=== PATIENT | male | born 1950 | race Caucasian/White ===

== ENCOUNTER 2016-05-14 10:42 | Outpatient (CLI) | payer MEDICARE | END 2016-05-14 10:43 | disposition home or self-care (01) | DX: M19.012 Primary osteoarthritis, left shoulder (principal); R22.2 Localized swelling, mass and lump, trunk ==

== ENCOUNTER 2016-08-01 08:20 | Outpatient (CLI) | payer MEDICARE | END 2016-08-01 08:21 | disposition home or self-care (01) | DX: E78.5 Hyperlipidemia, unspecified (principal) ==

== ENCOUNTER 2016-08-07 11:25 | Outpatient (CLI) | payer OTHER | END 2016-08-07 11:26 | disposition home or self-care (01) | DX: M19.112 Post-traumatic osteoarthritis, left shoulder (principal) ==

== ENCOUNTER 2016-08-11 19:59 | Emergency (ER) | payer OTHER ==
[2016-08-11] MEDS ORDERED: HYDROcod/ACETAM 5/325 MG TABLET PO STA (22:37)
[2016-08-11] MEDS ORDERED: HYDROcod/ACETAM 5/325 MG TABLET ONE (22:50)
== END 2016-08-11 23:16 | disposition home or self-care (01) ==
DX: R07.89 Other chest pain (principal); I25.10 Atherosclerotic heart disease of native coronary artery without angina pectoris; Z95.1 Presence of aortocoronary bypass graft; R01.1 Cardiac murmur, unspecified; I10 Essential (primary) hypertension; E78.00 Pure hypercholesterolemia, unspecified; Z79.82 Long term (current) use of aspirin; F17.200 Nicotine dependence, unspecified, uncomplicated
CPT/HCPCS: 80053; 83690; 84484; 85025; 93005; 93010; 99283; 99284; A9270

== ENCOUNTER 2016-12-31 08:08 | Outpatient (CLI) | payer OTHER ==
[2016-12-31 15:25] LABS: ALBUMIN/GLOBULIN RATIO 1.6 (1.0-2.2); BILIRUBIN,TOTAL 0.8 mg/dL (0.2-1.0); BUN - BLOOD UREA NITROGEN 12 mg/dL (6-20); CALCIUM 9.2 mg/dL (8.5-10.3); CARBON DIOXIDE - CO2 30 mmol/L (21-32); CHLORIDE 106 mmol/L (101-111); CHOL/HDL RATIO 2.8 (<5.0); CHOLESTEROL 98 mg/dL; CREATININE 0.7 mg/dL (0.6-1.2); GFR - MDRD 112 (>89); GLUCOSE 104 mg/dL (70-100); HDL CHOLESTEROL 35 mg/dL; LDL/HDL RATIO 1.3 (<3.6); POTASSIUM 4.1 mmol/L (3.5-5.0); SODIUM 142 mmol/L (135-145); TOTAL PROTEIN 7.2 g/dL (6.7-8.2); TRIGLYCERIDES 80 mg/dL; VLDL CHOLESTEROL 16 mg/dL
== END 2016-12-31 08:09 | disposition home or self-care (01) ==
LOC: LAB.WCP 08:08
PROVIDERS: ATTEND Family Medicine
DX: I25.10 Atherosclerotic heart disease of native coronary artery without angina pectoris (principal); E78.5 Hyperlipidemia, unspecified; Z12.5 Encounter for screening for malignant neoplasm of prostate
CPT/HCPCS: 36415; 80053; 80061; 84153

== ENCOUNTER 2017-07-26 08:00 | Outpatient (CLI) | payer OTHER ==
[2017-07-26 13:21] LABS: ALBUMIN 4.1 g/dL (3.2-5.5); ALBUMIN/GLOBULIN RATIO 1.5 (1.0-2.2); ALKALINE PHOSPHATASE 87 IU/L (42-121); ALT ALANINE AMINOTRANSFERASE 20 IU/L (10-60); AST ASPARTATE AMINOTRANSFERASE 16 IU/L (10-42); BILIRUBIN,TOTAL 0.3 mg/dL (0.2-1.0); BUN - BLOOD UREA NITROGEN 12 mg/dL (6-20); CALCIUM 8.9 mg/dL (8.5-10.3); CARBON DIOXIDE - CO2 29 mmol/L (21-32); CHLORIDE 105 mmol/L (101-111); CHOL/HDL RATIO 2.6 (<5.0); CHOLESTEROL 111 mg/dL; CREATININE 0.7 mg/dL (0.6-1.2); GFR - MDRD 112 (>89); GLUCOSE 97 mg/dL (70-100); HDL CHOLESTEROL 42 mg/dL; LDL CHOLESTEROL,CALCULATED 55 mg/dL; LDL/HDL RATIO 1.3 (<3.6); SODIUM 140 mmol/L (135-145); TOTAL PROTEIN 6.8 g/dL (6.7-8.2); VLDL CHOLESTEROL 14 mg/dL
== END 2017-07-26 08:01 | disposition home or self-care (01) ==
LOC: LAB.WCP 08:00
PROVIDERS: ATTEND Family Medicine
DX: I25.10 Atherosclerotic heart disease of native coronary artery without angina pectoris (principal); E78.5 Hyperlipidemia, unspecified
CPT/HCPCS: 36415; 80053; 80061; 83721

== ENCOUNTER 2017-10-25 09:46 | Outpatient (CLI) | payer OTHER ==
[2017-10-25 12:44] LABS: BASOPHILS % (AUTO) 0.4 %; EOSINOPHILS # (AUTO) 0.1 10^3/uL (0.0-0.7); EOSINOPHILS % (AUTO) 1.5 %; LYMPHOCYTES # (AUTO) 2.9 10^3/uL (1.5-3.5); LYMPHOCYTES % (AUTO) 31.8 %; MEAN CORPUSCULAR HEMOGLOBIN 33.4 pg (27.0-31.0); MEAN CORPUSCULAR HGB CONC 33.6 g/dL (32.0-36.0); MEAN CORPUSCULAR VOLUME 99.4 fL (80.0-94.0); MEAN PLATELET VOLUME 10.3 fL (7.4-11.4); MONOCYTES # (AUTO) 0.9 10^3/uL (0.0-1.0); MONOCYTES % (AUTO) 10.1 %; NEUTROPHILS # (AUTO) 5.1 10^3/uL (1.5-6.6); NEUTROPHILS % (AUTO) 56.2 %; PLT - PLATELET COUNT 150 10^3/uL (130-450); RED BLOOD COUNT 4.79 10^6/uL (4.70-6.10); RED CELL DISTRIBUTION WIDTH 13.5 % (12.0-15.0)
[2017-10-25 12:59] LABS: ALBUMIN 4.1 g/dL (3.2-5.5); ALBUMIN/GLOBULIN RATIO 1.3 (1.0-2.2); CALCIUM 8.9 mg/dL (8.5-10.3); CREATININE 0.7 mg/dL (0.6-1.2); TOTAL PROTEIN 7.2 g/dL (6.7-8.2)
== END 2017-10-25 09:47 | disposition home or self-care (01) ==
LOC: LAB.WCP 09:46
PROVIDERS: ATTEND Family Medicine
DX: K57.92 Diverticulitis of intestine, part unspecified, without perforation or abscess without bleeding (principal)
CPT/HCPCS: 36415; 80053; 85025

== ENCOUNTER 2018-01-22 08:40 | Outpatient (CLI) | payer OTHER ==
[2018-01-22 13:11] LABS: BASOPHILS % (AUTO) 0.5 %; EOSINOPHILS # (AUTO) 0.2 10^3/uL (0.0-0.7); EOSINOPHILS % (AUTO) 2.2 %; HGB - HEMOGLOBIN 16.7 g/dL (14.0-18.0); LYMPHOCYTES # (AUTO) 2.4 10^3/uL (1.5-3.5); LYMPHOCYTES % (AUTO) 34.7 %; MEAN CORPUSCULAR HEMOGLOBIN 33.8 pg (27.0-31.0); MEAN CORPUSCULAR HGB CONC 33.7 g/dL (32.0-36.0); MEAN CORPUSCULAR VOLUME 100.1 fL (80.0-94.0); MEAN PLATELET VOLUME 10.3 fL (7.4-11.4); MONOCYTES # (AUTO) 0.7 10^3/uL (0.0-1.0); MONOCYTES % (AUTO) 9.6 %; NEUTROPHILS # (AUTO) 3.7 10^3/uL (1.5-6.6); PLT - PLATELET COUNT 157 10^3/uL (130-450); RED BLOOD COUNT 4.93 10^6/uL (4.70-6.10); RED CELL DISTRIBUTION WIDTH 13.6 % (12.0-15.0)
[2018-01-22 13:20] LABS: ALBUMIN/GLOBULIN RATIO 1.6 (1.0-2.2); ALKALINE PHOSPHATASE 98 IU/L (42-121); ALT ALANINE AMINOTRANSFERASE 20 IU/L (10-60); AST ASPARTATE AMINOTRANSFERASE 16 IU/L (10-42); BUN - BLOOD UREA NITROGEN 12 mg/dL (6-20); CALCIUM 9.1 mg/dL (8.5-10.3); CARBON DIOXIDE - CO2 31 mmol/L (21-32); CHLORIDE 104 mmol/L (101-111); CHOL/HDL RATIO 2.2 (<5.0); CHOLESTEROL 99 mg/dL; CREATININE 0.7 mg/dL (0.6-1.2); GFR - MDRD 112 (>89); GLUCOSE 100 mg/dL (70-100); HDL CHOLESTEROL 46 mg/dL; LDL CHOLESTEROL,CALCULATED 40 mg/dL; LDL/HDL RATIO 0.9 (<3.6); SODIUM 140 mmol/L (135-145); TOTAL PROTEIN 6.5 g/dL (6.7-8.2); VLDL CHOLESTEROL 13 mg/dL
[2018-01-22 13:56] LABS: PLATELET MORPHOLOGY RARE GIANT PLATELETS (NORMAL)
== END 2018-01-22 08:41 ==
LOC: LAB.WCP 08:40
PROVIDERS: ATTEND Family Medicine
DX: E78.5 Hyperlipidemia, unspecified (principal); Z12.5 Encounter for screening for malignant neoplasm of prostate; F32.9 Major depressive disorder, single episode, unspecified; I25.10 Atherosclerotic heart disease of native coronary artery without angina pectoris
CPT/HCPCS: 36415; 80053; 80061; 83721; 84153; 84443; 85025

== ENCOUNTER 2018-03-25 08:38 | Outpatient (CLI) | payer MEDICARE, OTHER ==
[2018-03-25 14:57] LABS: ALBUMIN/GLOBULIN RATIO 1.2 (1.0-2.2); ALKALINE PHOSPHATASE 103 IU/L (42-121); ALT ALANINE AMINOTRANSFERASE 18 IU/L (10-60); AST ASPARTATE AMINOTRANSFERASE 19 IU/L (10-42); BILIRUBIN,TOTAL 0.9 mg/dL (0.2-1.0); BUN - BLOOD UREA NITROGEN 13 mg/dL (6-20); CALCIUM 9.2 mg/dL (8.5-10.3); CARBON DIOXIDE - CO2 33 mmol/L (21-32); CHLORIDE 103 mmol/L (101-111); CHOL/HDL RATIO 4.4 (<5.0); CHOLESTEROL 212 mg/dL; CREATININE 0.9 mg/dL (0.6-1.2); GFR - MDRD 84 (>89); GLUCOSE 101 mg/dL (70-100); HDL CHOLESTEROL 48 mg/dL; LDL CHOLESTEROL,CALCULATED 147 mg/dL; LDL/HDL RATIO 3.1 (<3.6); SODIUM 143 mmol/L (135-145); TOTAL PROTEIN 7.3 g/dL (6.7-8.2); VLDL CHOLESTEROL 17 mg/dL
[2018-03-25 14:58] LABS: PSA FREE 0.36 ng/mL (0.16-2.81)
[2018-03-25 14:59] LABS: PSA TOTAL 2.95 ng/mL (0.000-2.000)
[2018-03-25 19:51] LABS: BILIRUBIN,URINE NEGATIVE (NEGATIVE); GLUCOSE, URINE (UA) NEGATIVE (NEGATIVE); KETONES,URINE (UA) NEGATIVE (NEGATIVE); LEUKOCYTE ESTERASE, URINE NEGATIVE (NEGATIVE); NITRITE,URINE NEGATIVE (NEGATIVE); OCCULT BLOOD,URINE NEGATIVE (NEGATIVE); PROTEIN,URINE NEGATIVE (NEGATIVE); UROBILINOGEN,URINE 0.2 (NORMAL) E.U./dL (NORMAL)
[2018-03-25 20:20] LABS: AMORPHOUS SEDIMENT,UR Few /LPF; BACTERIA,URINE None Seen /HPF (None Seen); CLARITY,URINE CLEAR (CLEAR); RBC,URINE 0-5 /HPF (0-5); SQUAMOUS EPITHELIAL CELL,UR NONE SEEN (<= Few)
== END 2018-03-25 23:59 | disposition home or self-care (01) ==
LOC: LAB.WCP 08:38
PROVIDERS: ATTEND Family Medicine
DX: E78.5 Hyperlipidemia, unspecified (principal); R97.20 Elevated prostate specific antigen [PSA]; F32.9 Major depressive disorder, single episode, unspecified; R31.9 Hematuria, unspecified; R10.2 Pelvic and perineal pain
CPT/HCPCS: 36415; 80053; 80061; 81001; 83721; 84153; 84154; 84443; 87086

== ENCOUNTER 2018-04-06 08:13 | Outpatient (CLI) | payer MEDICARE ==
[~2018-04-06 08:13] MED LIST: IOVERSOL 320 100 ML VIAL IVP ONE
[2018-04-06] MEDS ORDERED: IOVERSOL 320 50 ML VIAL ONE ×2 (08:27→08:29)
[2018-04-06] MEDS ORDERED: IOVERSOL 320 100 ML VIAL IVP ONE (08:56)
--- NOTE | 2018-04-07 02:01 | CT Report ---
Reason: GROSS HEMATURIA Procedure Date: 04/06/2018 Accession Number: [id number] / [id number] Procedure: CT - IVP CPT Code: FULL RESULT: EXAM: CT ABDOMEN AND PELVIS WITHOUT AND WITH CONTRAST (CT IVP) EXAM DATE: 04/06/2018 09:02 AM. CLINICAL HISTORY: Gross hematuria. COMPARISONS: ABDOMEN/PELVIS W/ 09/27/2014 3:16 PM. TECHNIQUE: Routine helical imaging was performed through the kidneys, ureters and bladder in the precontrast, postcontrast and delayed phase. IV Contrast: 100 mL Optiray 320. Reconstructions: Coronal and sagittal. In accordance with CT protocol optimization, one or more of the following dose reduction techniques were utilized for this exam: automated exposure control, adjustment of mA and/or KV based on patient size, or use of iterative reconstructive technique. FINDINGS: Lung Bases: Unremarkable. Right Kidney/Ureter: No stones, hydronephrosis, or solid-appearing masses. Chronic benign, more than 5 cm, cyst exophytic posteriorly. Left Kidney/Ureter: No stones, hydronephrosis, or solid-appearing masses. Other Abdominal Organs: The liver, spleen, pancreas, gallbladder, and adrenal glands are unremarkable with the exception of small hepatic cysts. Peritoneal Cavity/Bowel: No free fluid, free air or adenopathy. No masses. Bowel loops appear unremarkable with exception of colonic diverticulosis. Pelvic Organs: Mildly enlarged prostate. The bladder appears within normal limits with the exception of a small urachal remnant. Vasculature: Normal. Bones: No significant abnormality with note of prior median sternotomy. Other: None. IMPRESSION: 1. No urinary tract solid masses, stones, or obstruction. Approximately 5 cm incidental right renal cyst. 2. Enlarged prostate. 3. Colonic diverticulosis. RADIA
== END 2018-04-06 08:14 | disposition home or self-care (01) ==
LOC: DI 08:13
PROVIDERS: ATTEND Urology
DX: N28.1 Cyst of kidney, acquired (principal); N40.0 Benign prostatic hyperplasia without lower urinary tract symptoms; K57.30 Diverticulosis of large intestine without perforation or abscess without bleeding
CPT/HCPCS: 74178; Q9967

== ENCOUNTER 2018-07-02 08:00 | Outpatient (CLI) | payer MEDICARE ==
[2018-07-02 13:36] LABS: ALBUMIN 4.3 g/dL (3.2-5.5); ALBUMIN/GLOBULIN RATIO 1.5 (1.0-2.2); ALKALINE PHOSPHATASE 86 IU/L (42-121); ALT ALANINE AMINOTRANSFERASE 26 IU/L (10-60); AST ASPARTATE AMINOTRANSFERASE 25 IU/L (10-42); BILIRUBIN,TOTAL 1.3 mg/dL (0.2-1.0); BUN - BLOOD UREA NITROGEN 14 mg/dL (6-20); CARBON DIOXIDE - CO2 30 mmol/L (21-32); CHLORIDE 102 mmol/L (101-111); CHOL/HDL RATIO 2.9 (<5.0); CHOLESTEROL 129 mg/dL; CREATININE 0.7 mg/dL (0.6-1.2); GFR - MDRD 112 (>89); GLUCOSE 92 mg/dL (70-100); HDL CHOLESTEROL 44 mg/dL; LDL CHOLESTEROL,CALCULATED 73 mg/dL; LDL/HDL RATIO 1.7 (<3.6); SODIUM 141 mmol/L (135-145); TOTAL PROTEIN 7.1 g/dL (6.7-8.2); VLDL CHOLESTEROL 12 mg/dL
== END 2018-07-02 23:59 | disposition home or self-care (01) ==
LOC: LAB.WCP 08:00
PROVIDERS: ATTEND Family Medicine
DX: E78.5 Hyperlipidemia, unspecified (principal)
CPT/HCPCS: 36415; 80053; 80061; 83721

== ENCOUNTER 2018-08-12 13:21 | Emergency (ER) | payer MEDICARE ==
--- NOTE | 2018-08-12 13:29 | ED Physician Documentation ---
PD HPI CHEST PAIN - Stated complaint Stated Complaint: CHEST PAIN - History obtained from History obtained from: Patient - History of Present Illness Timing - onset: How many days ago (6) Timing - onset during: Exertion (He says he did 2 hours or weed whacking 6 days ago. He did not have any unusual chest pain or dyspnea at that time. He states the next morning he woke up feeling sore in the chest wall. It hurt more with palpation and with shoulder and arm use. He had been using some Aleve twice daily and using some ice to the area periodically as well. He saw her chiropractor yesterday without any improvement. He went to the clinic today but because of the prior history of some heart problems with CABG in 2014, the providers there referred him to the ER for further evaluation.) Timing - duration: Days (5) Timing - details: Gradual onset, Still present, Waxing and waning Quality: Aching, Dull, Pain Location: Substernal, Left chest Radiation: Left upper extremity Improved by: Rest Worsened by: Inspiration, Movement, Palpation Associated symptoms: No: Shortness of air, Nausea, Feeling faint / dizzy, Palpitations, Cough Similar symptoms before: Has not had sx before (He states this does not feel like his angina pain that he had before his bypass) Review of Systems Constitutional: denies: Fever, Chills, Myalgias Nose: denies: Rhinorrhea / runny nose, Congestion Throat: denies: Sore throat Cardiac: reports: Chest pain / pressure. denies: Palpitations, Pedal edema, Calf pain Respiratory: denies: Cough GI: denies: Abdominal Pain, Nausea, Vomiting, Diarrhea Skin: denies: Rash, Lesions Neurologic: denies: Generalized weakness, Near syncope PD PAST MEDICAL HISTORY - Past Medical History Cardiovascular: Hypertension, High cholesterol, Coronary artery disease, Other Respiratory: Pneumonia Endocrine/Autoimmune: None GI: None : Benign prostate hypertrophy Psych: None Musculoskeletal: Osteoarthritis, Chronic back pain - Past Surgical History Past Surgical History: Yes General: Hiatal hernia repair Ortho: Rotator cuff repair, Spine surgery, Other Cardiovascular: CABG - Present Medications Home Medications: Ambulatory Orders Medication Instructions Recorded Confirmed Aspirin 81 mg PO 03/22/16 Atorvastatin Calcium 40 mg PO 03/22/16 Oxycodone HCl/Acetaminophen 1 each PO 03/22/16 [Oxycodone-Acetaminophen 5-325] Sertraline HCl 25 mg PO 03/22/16 Tamsulosin HCl [Flomax] 0.4 mg PO 03/22/16 Nitroglycerin [Nitrostat] 0.4 mg SL Q5MIN PRN #20 tablet 08/11/16 Dexamethasone [Decadron] 4 mg PO DAILY #5 tablet 08/12/18 Finasteride [Proscar] 5 mg PO 08/12/18 08/12/18 Hydrocodone/Acetaminophen [Craig 1 each PO Q6H PRN #25 tablet 08/12/18 5-325 Tablet] - Allergies Allergies/Adverse Reactions: Allergies Allergy/AdvReac Type Severity Reaction Status Date / Time codeine Allergy Unknown Verified 03/22/16 13:56 tramadol AdvReac Hallucinati Verified 08/12/18 13:30 ons - Social History Does the pt smoke?: Yes Smoking Status: Current every day smoker Does the pt drink ETOH?: No Does the pt have substance abuse?: No - Immunizations Immunizations are current?: Yes - POLST Patient has POLST: Yes PD ED PE NORMAL - Vitals Vital signs reviewed: Yes - General General: Alert and oriented X 3, No acute distress, Well developed/nourished - HEENT HEENT: Pharynx benign - Neck Neck: Supple, no meningeal sign, No adenopathy - Cardiac Cardiac: RRR, No murmur, Other (prior sternotomy scar noted without redness. ) - Respiratory Respiratory: Clear bilaterally, Other (There is focal chest wall tenderness in the left sternal border cartilage reproducing his pain. There is no rash nor sores. There is no redness.) - Abdomen Abdomen: Soft, Non tender - Back Back: No CVA TTP - Derm Derm: Normal color, Warm and dry, No rash - Extremities Extremities: No deformity, No tenderness to palpate, Normal ROM s pain, No edema, No calf tenderness / cord - Neuro Neuro: Alert and oriented X 3, No motor deficit, Normal speech Results - Vitals Vitals: Vital Signs - 24 hr 08/12/18 08/12/18 08/12/18 13:27 14:55 15:08 Temperature 35.5 C L Heart Rate 62 61 61 Respiratory 20 18 16 Rate Blood Pressure 154/79 H 131/68 H 139/67 H O2 Saturation 96 97 96 Oxygen O2 Source Room air - EKG (time done) arrival Rhythm: NSR [place]: Normal Intervals: Normal MI QRS: Normal Ischemia: Normal ST segments, T wave inversion (V1 and V2, different than ECG in 2017. No ST elevations nor depressions. ). No: ST elevation c/w ischemia, Q waves - Labs Labs: Laboratory Tests 08/12/18 08/12/18 08/12/18 13:41 13:41 13:41 WBC 7.9 RBC 4.85 Hgb 16.1 Hct 47.4 MCV 97.7 H MCH 33.3 H MCHC 34.0 RDW 12.7 Plt Count 166 MPV 9.5 Neut # (Auto) 4.9 Lymph # (Auto) 2.3 Wilkin # (Auto) 0.5 Eos # (Auto) 0.1 Baso # (Auto) 0.1 Absolute Nucleated RBC 0.01 Nucleated RBC % 0.1 Sodium 140 Potassium 4.3 Chloride 101 Carbon Dioxide 29 Anion Gap 10.0 BUN 15 Creatinine 0.9 Estimated GFR (MDRD) 83 L Glucose 131 H Calcium 9.2 Total Bilirubin 0.7 AST 22 ALT 22 Alkaline Phosphatase 81 Troponin I < 0.04 B-Natriuretic Peptide Total Protein 6.9 Albumin 3.9 Globulin 3.0 Albumin/Globulin Ratio 1.3 Lipase 35 08/12/18 13:41 WBC RBC Hgb Hct MCV MCH MCHC RDW Plt Count MPV Neut # (Auto) Lymph # (Auto) Wilkin # (Auto) Eos # (Auto) Baso # (Auto) Absolute Nucleated RBC Nucleated RBC % Sodium Potassium Chloride Carbon Dioxide Anion Gap BUN Creatinine Estimated GFR (MDRD) Glucose Calcium Total Bilirubin AST ALT Alkaline Phosphatase Troponin I B-Natriuretic Peptide 19 Total Protein Albumin Globulin Albumin/Globulin Ratio Lipase - Rads (name of study) chest xray Radiology: Prelim report reviewed (no acute process), See rad report PD MEDICAL DECISION MAKING - ED course Complexity details: reviewed results, re-evaluated patient, considered differential, d/w patient Departure - Departure Disposition: 01 Home, Self Care Clinical Impression: Acute costochondritis Muscle strain of chest wall Qualifiers: Encounter type: initial encounter Qualified Code(s): S29.011A - Strain of muscle and tendon of front wall of thorax, initial encounter Condition: Stable Record reviewed to determine appropriate education?: Yes Instructions: ED Chest Pain Costochondritis Follow-Up: Renae Fields MD [Primary Care Provider] - Prescriptions: Dexamethasone [Decadron] 4 mg PO DAILY #5 tablet Hydrocodone/Acetaminophen [Craig 5-325 Tablet] 1 each PO Q6H PRN #25 tablet PRN Reason: Pain Comments: Continue your Aleve at home but increase the dose to 2 to 3 tablets twice daily with food. Add Decadron also an anti-inflammatory daily for 5 days. To that ad d Tylenol or hydrocodone as needed for pain. Continue with physical treatment such as chiropractic ice and heat. Recheck if not improving over the next several days to a week. Your blood test and x-ray are good here without any signs of heart or lung cause for the pains. It seems to be a strain of the muscles and cartilage on the chest wall. Discharge Date/Time: 08/12/18 15:18
[2018-08-12] MEDS ORDERED: KETOROLAC 15 MG/ML VIAL IVP STA (13:57)
[2018-08-12] MEDS ORDERED: MORPHINE 10 MG/ML VIAL IVP STA (13:57)
[2018-08-12 14:08] LABS: BASOPHILS # (AUTO) 0.1 10^3/uL (0.0-0.1); BASOPHILS % (AUTO) 0.9 %; EOSINOPHILS # (AUTO) 0.1 10^3/uL (0.0-0.7); EOSINOPHILS % (AUTO) 1.2 %; HGB - HEMOGLOBIN 16.1 g/dL (14.0-18.0); LYMPHOCYTES # (AUTO) 2.3 10^3/uL (1.5-3.5); LYMPHOCYTES % (AUTO) 29.1 %; MEAN CORPUSCULAR HEMOGLOBIN 33.3 pg (27.0-31.0); MEAN CORPUSCULAR VOLUME 97.7 fL (80.0-94.0); MEAN PLATELET VOLUME 9.5 fL (7.4-11.4); MONOCYTES # (AUTO) 0.5 10^3/uL (0.0-1.0); MONOCYTES % (AUTO) 6.3 %; NEUTROPHILS # (AUTO) 4.9 10^3/uL (1.5-6.6); NEUTROPHILS % (AUTO) 62.5 %; PLT - PLATELET COUNT 166 10^3/uL (130-450); RED BLOOD COUNT 4.85 10^6/uL (4.70-6.10); RED CELL DISTRIBUTION WIDTH 12.7 % (12.0-15.0); WHITE BLOOD COUNT 7.9 x10^3/uL (4.8-10.8)
[2018-08-12 14:15] LABS: ALBUMIN 3.9 g/dL (3.2-5.5); ALBUMIN/GLOBULIN RATIO 1.3 (1.0-2.2); BILIRUBIN,TOTAL 0.7 mg/dL (0.2-1.0); CALCIUM 9.2 mg/dL (8.5-10.3); CREATININE 0.9 mg/dL (0.6-1.2); TOTAL PROTEIN 6.9 g/dL (6.7-8.2)
--- NOTE | 2018-08-12 14:54 | XRAY Report ---
Reason: chest pain Procedure Date: 08/12/2018 Accession Number: [id number] / [id number] Procedure: XR - Chest 1 View X-Ray CPT Code: 18092 FULL RESULT: EXAM: CHEST RADIOGRAPHY EXAM DATE: 08/12/2018 02:24 PM. CLINICAL HISTORY: Chest pain. COMPARISON: CHEST 2 VIEW PA/LAT 06/02/2015 10:51 AM. TECHNIQUE: 1 view. FINDINGS: Lungs/Pleura: No focal opacities evident. No pleural effusion. No pneumothorax. Mediastinum: Patient has undergone median sternotomy. Heart size is within normal limits. There is fracture of the superior most sternotomy wire. Other: None. IMPRESSION: No acute intrathoracic plain film abnormality. RADIA
[2018-08-12 15:08] VITALS: BP 139/67
== END 2018-08-12 15:18 | disposition home or self-care (01) ==
LOC: ED 13:21
DX: S29.011A Strain of muscle and tendon of front wall of thorax, initial encounter (principal); S21.109A Unspecified open wound of unspecified front wall of thorax without penetration into thoracic cavity, initial encounter; X58.XXXA Exposure to other specified factors, initial encounter; Y93.H2 Activity, gardening and landscaping; Y92.009 Unspecified place in unspecified non-institutional (private) residence as the place of occurrence of the external cause; I10 Essential (primary) hypertension; I25.810 Atherosclerosis of coronary artery bypass graft(s) without angina pectoris; F17.200 Nicotine dependence, unspecified, uncomplicated
CPT/HCPCS: 36415; 71045; 80053; 83690; 83880; 84484; 85025; 93005; 96374; 99284

== ENCOUNTER 2019-02-14 12:00 | Outpatient (CLI) | payer MEDICARE ==
--- NOTE | 2019-02-16 00:31 | XRAY Report ---
Reason: Acute on chronic bilateral hip pain Procedure Date: 02/14/2019 Accession Number: [id number] / [id number] Procedure: XR - Hips 2V BILAT CPT Code: Final Report FULL RESULT: EXAM: BILATERAL HIP RADIOGRAPHY EXAM DATE: 02/14/2019 12:00 PM CLINICAL HISTORY: Acute on chronic bilateral hip pain. COMPARISON: None. TECHNIQUE: 2 views each. FINDINGS: Bones: Normal. No fractures or bone lesion. Right Hip: Normal. No dislocation. The hip joint space is preserved. Left Hip: Normal. No dislocation. The hip joint space is preserved. Soft Tissues: Unremarkable. IMPRESSION: Normal bilateral hip radiography. RADIA
== END 2019-02-14 23:59 | disposition home or self-care (01) ==
LOC: DI 12:00
PROVIDERS: ATTEND Family Medicine
DX: M25.551 Pain in right hip (principal); M25.552 Pain in left hip
CPT/HCPCS: 73521

== ENCOUNTER 2019-04-26 09:09 | Outpatient (CLI) | payer MEDICARE ==
[~2019-04-26 09:09] MED LIST changes: +ALBUTEROL NEB 2.5 MG/3 ML INH SCH; -IOVERSOL 320 100 ML VIAL IVP ONE
== END 2019-04-26 09:10 | disposition home or self-care (01) ==
LOC: RT 09:09
PROVIDERS: ATTEND Family Medicine
DX: R06.02 Shortness of breath (principal)
CPT/HCPCS: 94010

== ENCOUNTER 2020-07-08 08:45 | Outpatient (CLI) | payer MEDICARE ==
--- NOTE | 2020-07-08 09:59 | CT Report ---
PROCEDURE: Low Dose Lung Cancer Screen INDICATIONS: HX OF SMOKING TECHNIQUE: Noncontrast low-dose 5 mm thick sections acquired from the pulmonary apices to the posterior costophr enic angles. 7 mm thick coronal and sagittal MIP reformats were then acquired. For radiation dose r eduction, the following was used: automated exposure control, adjustment of mA and/or kV according t o patient size. COMPARISON: None. FINDINGS: Image quality: Excellent. Lungs and pleura: There is no suspicious noncalcified pulmonary nodule or mass. No acute airspace op acity otherwise. Pleural spaces are clear. Mediastinum: Heart size is normal. No pericardial effusion. No mediastinal adenopathy by size crit eria. Thoracic aorta and central pulmonary arteries are normal in size. Esophagus is normal in [place]. No hiatal hernia. Bones and chest wall: Median sternotomy changes. No suspicious bony lesions. No vertebral body compr ession fractures. No axillary or supraclavicular adenopathy by size criteria. Abdomen: Visualized upper abdomen solid organs and bowel loops appear normal in the absence of contr ast. IMPRESSION: No suspicious pulmonary nodule or mass. Lung RADS category 1. Recommendation: Annual low-dose CT of the chest for lung cancer screening. Reviewed by: Will Farrell MD on 07/08/2020 9:57 AM PDT Approved by: Will Farrell MD on 07/08/2020 9:57 AM PDT Station ID: [id number]
== END 2020-07-08 08:46 | disposition home or self-care (01) ==
LOC: DI 08:45
PROVIDERS: ATTEND Family Medicine
DX: Z12.2 Encounter for screening for malignant neoplasm of respiratory organs (principal); Z87.891 Personal history of nicotine dependence

== ENCOUNTER 2021-03-28 08:20 | Outpatient (CLI) | payer MEDICARE ==
[2021-03-28 12:13] LABS: BILIRUBIN,URINE NEGATIVE (NEGATIVE); GLUCOSE, URINE (UA) NEGATIVE (NEGATIVE); KETONES,URINE (UA) NEGATIVE (NEGATIVE); LEUKOCYTE ESTERASE, URINE NEGATIVE (NEGATIVE); NITRITE,URINE NEGATIVE (NEGATIVE); OCCULT BLOOD,URINE NEGATIVE (NEGATIVE); PROTEIN,URINE NEGATIVE (NEGATIVE); UROBILINOGEN,URINE 0.2 (NORMAL) E.U./dL (NORMAL)
[2021-03-28 12:14] LABS: BASOPHILS # (AUTO) 0.1 10^3/uL (0.0-0.1); BASOPHILS % (AUTO) 0.9 %; EOSINOPHILS # (AUTO) 0.1 10^3/uL (0.0-0.7); EOSINOPHILS % (AUTO) 2.5 %; HCT - HEMATOCRIT 47.6 % (42.0-52.0); HGB - HEMOGLOBIN 15.9 g/dL (14.0-18.0); LYMPHOCYTES # (AUTO) 2.6 10^3/uL (1.5-3.5); LYMPHOCYTES % (AUTO) 46.7 %; MEAN CORPUSCULAR HGB CONC 33.4 g/dL (32.0-36.0); MEAN CORPUSCULAR VOLUME 98.8 fL (80.0-94.0); MEAN PLATELET VOLUME 11.4 fL (7.4-11.4); MONOCYTES # (AUTO) 0.5 10^3/uL (0.0-1.0); MONOCYTES % (AUTO) 9.3 %; NEUTROPHILS # (AUTO) 2.2 10^3/uL (1.5-6.6); NEUTROPHILS % (AUTO) 40.2 %; PLT - PLATELET COUNT 169 10^3/uL (130-450); RED BLOOD COUNT 4.82 10^6/uL (4.70-6.10); RED CELL DISTRIBUTION WIDTH 12.2 % (12.0-15.0); WHITE BLOOD COUNT 5.5 x10^3/uL (4.8-10.8)
[2021-03-28 12:16] LABS: ALBUMIN 4.1 g/dL (3.2-5.5); ALBUMIN/GLOBULIN RATIO 1.2 (1.0-2.2); ALKALINE PHOSPHATASE 82 IU/L (42-121); ALT ALANINE AMINOTRANSFERASE 41 IU/L (10-60); AST ASPARTATE AMINOTRANSFERASE 32 IU/L (10-42); BILIRUBIN,TOTAL 0.7 mg/dL (0.2-1.0); BUN - BLOOD UREA NITROGEN 11 mg/dL (6-20); CALCIUM 9.4 mg/dL (8.5-10.3); CARBON DIOXIDE - CO2 30 mmol/L (21-32); CHLORIDE 104 mmol/L (101-111); CHOL/HDL RATIO 2.8 (<5.0); CHOLESTEROL 141 mg/dL; CREATININE 0.9 mg/dL (0.6-1.2); GFR - MDRD 83 (>89); GLUCOSE 93 mg/dL (70-100); HDL CHOLESTEROL 51 mg/dL; LDL CHOLESTEROL,CALCULATED 55 mg/dL; LDL/HDL RATIO 1.1 (<3.6); POTASSIUM 4.1 mmol/L (3.5-5.0); SODIUM 143 mmol/L (135-145); TOTAL PROTEIN 7.4 g/dL (6.7-8.2); TRIGLYCERIDES 175 mg/dL; VLDL CHOLESTEROL 35 mg/dL
[2021-03-28 12:27] LABS: ESTIMATED AVERAGE GLUCOSE 117 mg/dL (70-100); HEMOGLOBIN A1c% 5.7 % (4.27-6.07)
[2021-03-28 13:21] LABS: CLARITY,URINE CLEAR (CLEAR); RBC,URINE None Seen /HPF (0-5); WBC,URINE 0-3 /HPF (0-3)
[2021-03-28 13:22] LABS: BACTERIA,URINE None Seen /HPF (None Seen); SQUAMOUS EPITHELIAL CELL,UR NONE SEEN (<= Few)
== END 2021-03-28 23:59 | disposition home or self-care (01) ==
LOC: LAB.WCP 08:20
PROVIDERS: ATTEND Nurse Practitioner
DX: I25.10 Atherosclerotic heart disease of native coronary artery without angina pectoris (principal); E78.5 Hyperlipidemia, unspecified; E66.9 Obesity, unspecified; N40.0 Benign prostatic hyperplasia without lower urinary tract symptoms
CPT/HCPCS: 36415; 80053; 80061; 81001; 83036; 83721; 84153; 85025; 87086

== ENCOUNTER 2021-04-19 12:30 | Outpatient (CLI) | payer MEDICARE ==
[2021-04-19 18:24] LABS: ALBUMIN 4.5 g/dL (3.2-5.5); BILIRUBIN,DIRECT 0.1 mg/dL (0.1-0.5); TOTAL PROTEIN 7.5 g/dL (6.7-8.2)
== END 2021-04-19 23:59 | disposition home or self-care (01) ==
LOC: LAB.WCP 12:30
PROVIDERS: ATTEND Physician Assistant
DX: L30.0 Nummular dermatitis (principal); B35.1 Tinea unguium; B35.2 Tinea manuum
CPT/HCPCS: 36415; 80076

== ENCOUNTER 2021-04-25 08:00 | Outpatient (CLI) | payer MEDICARE ==
[2021-04-25 18:43] LABS: HCT - HEMATOCRIT 49.1 % (42.0-52.0); HGB - HEMOGLOBIN 16.3 g/dL (14.0-18.0); MEAN CORPUSCULAR HEMOGLOBIN 32.9 pg (27.0-31.0); MEAN CORPUSCULAR HGB CONC 33.2 g/dL (32.0-36.0); MEAN CORPUSCULAR VOLUME 99.2 fL (80.0-94.0); MEAN PLATELET VOLUME 12.1 fL (7.4-11.4); RED BLOOD COUNT 4.95 10^6/uL (4.70-6.10); RED CELL DISTRIBUTION WIDTH 12.3 % (12.0-15.0); WHITE BLOOD COUNT 6.9 x10^3/uL (4.8-10.8)
[2021-04-25 18:47] LABS: URIC ACID 6.8 mg/dL (2.6-7.2)
[2021-04-25 18:53] LABS: CRP - C-REACTIVE PROTEIN < 1.0 mg/dL (0-1.0)
[2021-04-25 20:21] LABS: RHEUMATOID FACTOR NEGATIVE (Negative)
[2021-04-27 10:46] LABS: DNA (DS) ANTIBODY 14 IU/mL
[2021-04-27 16:51] LABS: CYCLIC CITRULL PEPTIDE CCP IGG <16 UNITS
[2021-04-28 22:12] LABS: ANA SCREEN NEGATIVE (NEGATIVE)
== END 2021-04-25 23:59 ==
LOC: LAB.WCP 08:00
PROVIDERS: ATTEND Nurse Practitioner
DX: M19.90 Unspecified osteoarthritis, unspecified site (principal)
CPT/HCPCS: 36415; 84550; 85027; 85651; 86038; 86140; 86200; 86225; 86430

== ENCOUNTER 2021-05-30 12:09 | Outpatient (CLI) | payer MEDICARE ==
[2021-05-30 12:35] LABS: BASOPHILS % (AUTO) 0.5 %; EOSINOPHILS # (AUTO) 0.1 10^3/uL (0.0-0.7); EOSINOPHILS % (AUTO) 1.5 %; HCT - HEMATOCRIT 47.5 % (42.0-52.0); HGB - HEMOGLOBIN 16.1 g/dL (14.0-18.0); LYMPHOCYTES # (AUTO) 2.2 10^3/uL (1.5-3.5); LYMPHOCYTES % (AUTO) 34.2 %; MEAN CORPUSCULAR HEMOGLOBIN 33.4 pg (27.0-31.0); MEAN CORPUSCULAR HGB CONC 33.9 g/dL (32.0-36.0); MEAN CORPUSCULAR VOLUME 98.5 fL (80.0-94.0); MEAN PLATELET VOLUME 10.9 fL (7.4-11.4); MONOCYTES # (AUTO) 0.7 10^3/uL (0.0-1.0); MONOCYTES % (AUTO) 10.1 %; NEUTROPHILS # (AUTO) 3.5 10^3/uL (1.5-6.6); NEUTROPHILS % (AUTO) 53.4 %; PLT - PLATELET COUNT 157 10^3/uL (130-450); RED BLOOD COUNT 4.82 10^6/uL (4.70-6.10); RED CELL DISTRIBUTION WIDTH 12.8 % (12.0-15.0); WHITE BLOOD COUNT 6.6 x10^3/uL (4.8-10.8)
[2021-05-30 12:44] LABS: ALBUMIN 3.9 g/dL (3.2-5.5); ALBUMIN/GLOBULIN RATIO 1.2 (1.0-2.2); BILIRUBIN,TOTAL 0.9 mg/dL (0.2-1.0); CALCIUM 9.2 mg/dL (8.5-10.3); CREATININE 0.9 mg/dL (0.6-1.2); POTASSIUM 4.1 mmol/L (3.5-5.0); TOTAL PROTEIN 7.1 g/dL (6.7-8.2)
== END 2021-05-30 12:10 | disposition home or self-care (01) ==
LOC: LAB 12:09
PROVIDERS: ATTEND Physician Assistant
DX: L29.8 Other pruritus (principal); B35.1 Tinea unguium
CPT/HCPCS: 36415; 80053; 85025

== ENCOUNTER 2021-08-23 10:45 | Outpatient (CLI) | payer MEDICARE ==
[2021-08-23 11:13] LABS: ALBUMIN 4.4 g/dL (3.2-5.5); BILIRUBIN,DIRECT 0.1 mg/dL (0.1-0.5); BILIRUBIN,TOTAL 0.8 mg/dL (0.2-1.0); TOTAL PROTEIN 7.2 g/dL (6.7-8.2)
== END 2021-08-23 10:46 | disposition home or self-care (01) ==
LOC: LAB 10:45
PROVIDERS: ATTEND Physician Assistant
DX: B35.2 Tinea manuum (principal); L30.8 Other specified dermatitis; B35.1 Tinea unguium
CPT/HCPCS: 36415; 80076

== ENCOUNTER 2021-09-05 11:46 | Outpatient (CLI) | payer MEDICARE ==
--- NOTE | 2021-09-05 14:05 | XRAY Report ---
PROCEDURE: Hand 3 View LT INDICATIONS: L HAND PX TECHNIQUE: 3 views of the hand(s) acquired. COMPARISON: None FINDINGS: Bones: Remote resection of the trapezium. Postsurgical change. No fractures or dislocations. No susp icious bony lesions. Soft tissues: No suspicious soft tissue calcifications. IMPRESSION: Remote resection of the trapezium. No evidence of acute bony abnormality of the left hand. Reviewed by: Zain Mckeon MD on 09/05/2021 2:04 PM PDT Approved by: Zain Mckeon MD on 09/05/2021 2:04 PM PDT Station ID: [id number]
== END 2021-09-05 11:47 | disposition home or self-care (01) ==
LOC: DI.N 11:46
PROVIDERS: ATTEND Nurse Practitioner Family
DX: S60.222A Contusion of left hand, initial encounter (principal)

== ENCOUNTER 2021-12-15 08:00 | Outpatient (CLI) | payer MEDICARE ==
[2021-12-15 14:37] LABS: BASOPHILS # (AUTO) 0.1 10^3/uL (0.0-0.1); BASOPHILS % (AUTO) 0.7 %; EOSINOPHILS # (AUTO) 0.1 10^3/uL (0.0-0.7); EOSINOPHILS % (AUTO) 1.1 %; HCT - HEMATOCRIT 46.4 % (42.0-52.0); HGB - HEMOGLOBIN 15.9 g/dL (14.0-18.0); LYMPHOCYTES # (AUTO) 2.6 10^3/uL (1.5-3.5); MEAN CORPUSCULAR HEMOGLOBIN 32.9 pg (27.0-31.0); MEAN CORPUSCULAR HGB CONC 34.3 g/dL (32.0-36.0); MEAN CORPUSCULAR VOLUME 96.1 fL (80.0-94.0); MEAN PLATELET VOLUME 11.1 fL (7.4-11.4); MONOCYTES # (AUTO) 0.6 10^3/uL (0.0-1.0); MONOCYTES % (AUTO) 7.7 %; NEUTROPHILS % (AUTO) 55.2 %; PLT - PLATELET COUNT 161 10^3/uL (130-450); RED BLOOD COUNT 4.83 10^6/uL (4.70-6.10); RED CELL DISTRIBUTION WIDTH 12.5 % (12.0-15.0); WHITE BLOOD COUNT 7.3 x10^3/uL (4.8-10.8)
[2021-12-15 14:57] LABS: ALBUMIN 4.3 g/dL (3.2-5.5); ALBUMIN/GLOBULIN RATIO 1.5 (1.0-2.2); BILIRUBIN,TOTAL 1.1 mg/dL (0.2-1.0); CALCIUM 9.4 mg/dL (8.5-10.3); POTASSIUM 3.9 mmol/L (3.5-5.0); TOTAL PROTEIN 7.2 g/dL (6.7-8.2)
[2021-12-15 15:57] LABS: BILIRUBIN,URINE NEGATIVE (NEGATIVE); GLUCOSE, URINE (UA) NEGATIVE (NEGATIVE); KETONES,URINE (UA) NEGATIVE (NEGATIVE); LEUKOCYTE ESTERASE, URINE NEGATIVE (NEGATIVE); NITRITE,URINE NEGATIVE (NEGATIVE); OCCULT BLOOD,URINE NEGATIVE (NEGATIVE); PH,URINE 6.5 PH (5.0-7.5); PROTEIN,URINE NEGATIVE (NEGATIVE); UROBILINOGEN,URINE 0.2 (NORMAL) E.U./dL (NORMAL)
[2021-12-15 16:04] LABS: CLARITY,URINE CLEAR (CLEAR)
[2021-12-15 16:11] LABS: BACTERIA,URINE None Seen /HPF (None Seen); RBC,URINE 0-5 /HPF (0-5); SQUAMOUS EPITHELIAL CELL,UR NONE SEEN (<= Few); WBC,URINE 0-3 /HPF (0-3)
[2021-12-16 04:09] LABS: COMPLEMENT C3 135 mg/dL (82-167); COMPLEMENT C4 31 mg/dL (12-38)
[2021-12-19 00:06] LABS: CARDIOLIPIN IGG <9 GPL U/mL (0-14); CARDIOLIPIN IGM 45 MPL U/mL (0-12)
== END 2021-12-15 23:59 | disposition home or self-care (01) ==
LOC: LAB 08:00
PROVIDERS: ATTEND Internal Medicine Rheumatology
DX: M25.50 Pain in unspecified joint (principal); R76.8 Other specified abnormal immunological findings in serum
CPT/HCPCS: 36415; 80053; 81001; 85025; 85598; 85613; 85651; 85732; 86147; 86160; 86225

== ENCOUNTER 2022-03-09 12:00 | Outpatient (CLI) | payer MEDICARE ==
--- NOTE | 2022-03-09 14:03 | XRAY Report ---
PROCEDURE: Lumbar Spine 2 View INDICATIONS: BACK PAIN, LUMBAR TECHNIQUE: 2 views of the lumbar spine were acquired. COMPARISON: None. FINDINGS: Bones: 5 [id number] vertebrae are present. There is normal bony alignment. No vertebral body compression fractures. No suspicious bony lesions. Multilevel degenerative disc space loss. Promine nt multilevel lower lumbar facet arthropathy. Suspect canal stenosis. Soft tissues: Overlying bowel gas pattern is normal. No suspicious soft tissue calcifications. IMPRESSION: Degenerative change. Suspect canal stenosis. No acute compression fractures. Comment: Lumbar spine MRI may be helpful. Reviewed by: Zain Mckeon MD on 03/09/2022 2:02 PM PST Approved by: Zain Mckeon MD on 03/09/2022 2:02 PM PST Station ID: [id number]
== END 2022-03-09 12:01 | disposition home or self-care (01) ==
LOC: DI 12:00
PROVIDERS: ATTEND Family Medicine
DX: M47.816 Spondylosis without myelopathy or radiculopathy, lumbar region (principal)

== ENCOUNTER 2022-06-20 08:36 | Outpatient (CLI) | payer MEDICARE ==
[2022-06-20 08:51] LABS: BASOPHILS # (AUTO) 0.1 10^3/uL (0.0-0.1); BASOPHILS % (AUTO) 0.9 %; EOSINOPHILS # (AUTO) 0.1 10^3/uL (0.0-0.7); EOSINOPHILS % (AUTO) 1.6 %; HGB - HEMOGLOBIN 15.7 g/dL (14.0-18.0); LYMPHOCYTES # (AUTO) 2.8 10^3/uL (1.5-3.5); LYMPHOCYTES % (AUTO) 39.7 %; MEAN CORPUSCULAR HEMOGLOBIN 32.4 pg (27.0-31.0); MEAN CORPUSCULAR HGB CONC 33.4 g/dL (32.0-36.0); MEAN CORPUSCULAR VOLUME 96.9 fL (80.0-94.0); MEAN PLATELET VOLUME 11.1 fL (7.4-11.4); MONOCYTES # (AUTO) 0.6 10^3/uL (0.0-1.0); MONOCYTES % (AUTO) 8.5 %; NEUTROPHILS # (AUTO) 3.4 10^3/uL (1.5-6.6); PLT - PLATELET COUNT 150 10^3/uL (130-450); RED BLOOD COUNT 4.85 10^6/uL (4.70-6.10); RED CELL DISTRIBUTION WIDTH 12.4 % (12.0-15.0)
[2022-06-20 09:20] LABS: ALBUMIN 4.3 g/dL (3.2-5.5); ALBUMIN/GLOBULIN RATIO 1.3 (1.0-2.2); ALKALINE PHOSPHATASE 71 IU/L (42-121); ALT ALANINE AMINOTRANSFERASE 25 IU/L (10-60); AST ASPARTATE AMINOTRANSFERASE 20 IU/L (10-42); BILIRUBIN,TOTAL 0.7 mg/dL (0.2-1.0); BUN - BLOOD UREA NITROGEN 18 mg/dL (6-20); CALCIUM 9.5 mg/dL (8.5-10.3); CARBON DIOXIDE - CO2 30 mmol/L (21-32); CHLORIDE 106 mmol/L (101-111); CHOL/HDL RATIO 2.8 (<5.0); CHOLESTEROL 110 mg/dL; CREATININE 0.8 mg/dL (0.6-1.2); GFR - MDRD 95 (>89); GLUCOSE 116 mg/dL (70-100); HDL CHOLESTEROL 39 mg/dL; LDL CHOLESTEROL,CALCULATED 57 mg/dL; LDL/HDL RATIO 1.5 (<3.6); POTASSIUM 4.5 mmol/L (3.5-5.0); SODIUM 144 mmol/L (135-145); TOTAL PROTEIN 7.5 g/dL (6.7-8.2); TRIGLYCERIDES 70 mg/dL; VLDL CHOLESTEROL 14 mg/dL
[2022-06-20 11:13] LABS: ESTIMATED AVERAGE GLUCOSE 117 mg/dL (70-100); HEMOGLOBIN A1c% 5.7 % (4.27-6.07)
== END 2022-06-20 08:37 | disposition home or self-care (01) ==
LOC: LAB 08:36
PROVIDERS: ATTEND Physician Assistant Medical
DX: E78.5 Hyperlipidemia, unspecified (principal); R73.01 Impaired fasting glucose; R97.20 Elevated prostate specific antigen [PSA]; I25.10 Atherosclerotic heart disease of native coronary artery without angina pectoris
CPT/HCPCS: 36415; 80053; 80061; 83036; 83721; 84153; 85025

== ENCOUNTER 2022-07-18 11:00 | Outpatient (CLI) | payer MEDICARE ==
--- NOTE | 2022-07-18 14:32 | XRAY Report ---
PROCEDURE: Hips 2V BILAT INDICATIONS: HIP PAIN CHRONIC, BILATERAL TECHNIQUE: 2 views of the hip were acquired. COMPARISON: X-ray hip 02/14/2019 FINDINGS: Bones: No fractures or dislocations. No suspicious bony lesions. Mild to moderate bilateral degen erative hip joint space narrowing, slightly greater on the left. Minimal periarticular osteophytes ar e present. No erosions. Overall appearance is relatively stable compared to prior exam. Degenerative changes are present within the lower lumbar spine. Soft tissues: No suspicious soft tissue calcifications or masses. IMPRESSION: Bilateral hip arthritic changes relatively stable compared to prior exam. Reviewed by: Jessica Musa MD on 07/18/2022 2:31 PM PDT Approved by: Jessica Musa MD on 07/18/2022 2:31 PM PDT Station ID: [id number]
== END 2022-07-18 11:01 | disposition home or self-care (01) ==
LOC: DI 11:00
PROVIDERS: ATTEND Nurse Practitioner
DX: M16.0 Bilateral primary osteoarthritis of hip (principal)

== ENCOUNTER 2022-07-28 09:32 | Outpatient (CLI) | payer MEDICARE ==
--- NOTE | 2022-07-30 10:01 | MRI Report ---
PROCEDURE: LUMBAR SPINE WO INDICATIONS: LUMBAR RADICULOPATHY TECHNIQUE: Noncontrast sagittal T1 spin echo and T2 fast echo, sagittal STIR, axial T1 and T2 fast spin echo thr ough the lumbar spine. In cases with scoliosis, additional coronal T2 fast spin echo may be performe d. COMPARISON: None. FINDINGS: Image quality: Excellent. Alignment and Curvature: There is normal bony alignment. Bone Marrow: Marrow is of normal overall signal. No acute vertebral body compression fractures. Spinal Cord: Conus medullaris terminates at the L1 level. Visualized cord demonstrates normal signa l and size. Paraspinous Soft Tissues: No paravertebral masses. T12-L1: Disc desiccation. L1-L2: Disc desiccation. L2-L3: Disc desiccation. Broad-based disc bulge. Mild facet hypertrophy. This results in mild-to-m oderate spinal canal narrowing. L3-L4: Disc desiccation. Broad-based disc bulge. Facet hypertrophy and ligamentum flavum hypertroph y. This results in moderate to severe spinal canal narrowing. Mild bilateral neural foraminal narrowi ng. L4-L5: Disc desiccation. Broad-based disc bulge. Ligament flavum and facet hypertrophy and mild lef t facet arthrosis. This results in mild spinal canal narrowing and moderate right neural foraminal na rrowing. The disc bulge makes contact with the nerve root approaching the L5 foramen on the right. L5-S1: Disc desiccation. Broad-based disc bulge. Bilateral facet arthrosis. No significant spinal c anal narrowing. IMPRESSION: Multilevel degenerative disc disease and facet arthrosis, as above. Of note, there is a broad-based disc bulge at L4-5, which makes contact with the right nerve root bisi roaching the L5 neural foramen. Additionally, there is moderate to severe spinal canal narrowing at L3-4, and mild to moderate spinal canal narrowing at L2-3. Reviewed by: Latrell Oneal on 07/30/2022 9:59 AM PDT Approved by: Latrell Oneal on 07/30/2022 9:59 AM PDT Station ID: [id number]
== END 2022-07-28 09:33 | disposition home or self-care (01) ==
LOC: DI 09:32
PROVIDERS: ATTEND Physical Medicine & Rehabilitation Pain Medicine
DX: M47.26 Other spondylosis with radiculopathy, lumbar region (principal); M47.27 Other spondylosis with radiculopathy, lumbosacral region; M51.15 Intervertebral disc disorders with radiculopathy, thoracolumbar region; M51.16 Intervertebral disc disorders with radiculopathy, lumbar region; M48.061 Spinal stenosis, lumbar region without neurogenic claudication; M51.17 Intervertebral disc disorders with radiculopathy, lumbosacral region

== ENCOUNTER 2023-03-28 12:54 | Day surgery (SDC) | payer MEDICARE ==
[2023-03-28] MEDS ORDERED: LACTATED RINGERS 1,000 ML IV ONE ×2 (13:14→17:58)
--- NOTE | 2023-03-28 15:46 | ANESTHESIA ---
Pre-Anesthesia VS, & Labs - Diagnosis painful scalp lipoma - Procedure excision right posterior scalp lipoma Vital Signs: Temp Pulse Resp BP Pulse Ox O2 Flow Rate 36.0 C L 58 L 16 155/76 H 98 03/28/23 13:00 03/28/23 13:00 03/28/23 13:00 03/28/23 13:00 03/28/23 13:00 Height: 5 ft 7 in Weight (kg): 93 kg Body Mass Index: 32.1 BMI Classification: Obese - NPO >8 hours Home Medications and Allergies Home Medications: Ambulatory Orders Azelastine HCl [Astepro Allergy] 1 inh NS DAILY 03/22/23 Betamethasone Aug 0.05% Cream [Diprolene AF 0.05% Cream] 1 applic TOP BID 03/22/23 Ketoconazole 2% Cream [Nizoral 2% Cream] 1 applic TOP BID 03/22/23 Montelukast [Singulair] 10 mg PO QPM 03/22/23 Mv-Min/Folic/K1/Lycopen/Lutein [Centrum Silver Men Tablet] 1 each PO DAILY 03/22/23 Naproxen Sodium [Aleve] 220 mg PO BID 03/22/23 Omeprazole 20 mg PO DAILY 03/22/23 Turmeric Root Extract [Turmeric] 1,500 mg PO DAILY 03/22/23 methocarbamoL [Methocarbamol] 750 mg PO TID MDD spasm 03/22/23 tiZANidine [Zanaflex] 4 mg PO Q8H PRN 03/22/23 Aspirin 81 mg PO DAILY 03/22/16 Atorvastatin Calcium 20 mg PO DAILY 03/22/16 Tamsulosin HCl [Flomax] 0.4 mg PO DAILY 03/22/16 Azelastine HCl [Astepro Allergy] 1 inh NS DAILY 03/22/23 Betamethasone Aug 0.05% Cream [Diprolene AF 0.05% Cream] 1 applic TOP BID 03/22/23 Ketoconazole 2% Cream [Nizoral 2% Cream] 1 applic TOP BID 03/22/23 Montelukast [Singulair] 10 mg PO QPM 03/22/23 Mv-Min/Folic/K1/Lycopen/Lutein [Centrum Silver Men Tablet] 1 each PO DAILY 03/22/23 Naproxen Sodium [Aleve] 220 mg PO BID 03/22/23 Omeprazole 20 mg PO DAILY 03/22/23 Turmeric Root Extract [Turmeric] 1,500 mg PO DAILY 03/22/23 methocarbamoL [Methocarbamol] 750 mg PO TID MDD spasm 03/22/23 tiZANidine [Zanaflex] 4 mg PO Q8H PRN 03/22/23 Allergies/Adverse Reactions: Allergies Allergy/AdvReac Type Severity Reaction Status Date / Time carisoprodol [From Soma] Allergy Unknown Verified 11/03/18 10:29 codeine Allergy Unknown Verified 03/22/16 13:56 acetaminophen [From Percocet] AdvReac Itching Verified 03/28/23 13:19 oxycodone [From Percocet] AdvReac Itching Verified 03/28/23 13:19 tramadol AdvReac Hallucinati Verified 08/12/18 13:30 ons Anes History & Medical History - Anesthetic History Anesthesia Complications: reports: No previous complications - Medical History Cardiovascular: reports: High cholesterol, Coronary artery disease, Murmur Pulmonary: reports: Pneumonia Gastrointestinal: reports: Hiatal hernia, Colon polyps Urinary: reports: Benign prostate hypertrophy, Other Musculoskeletal: reports: Osteoarthritis, Chronic back pain Endocrine/Autoimmune: reports: None Skin: reports: Eczema Smoking Status: Former smoker - Surgical History General: reports: Hiatal hernia repair, Colonoscopy, EGD, Other Eyes Ears Nose Throat (EENT): reports: Tonsil/Adenoidectomy Cardiothoracic: reports: CABG Orthopedic: reports: Shoulder arthroplasty, Carpal Tunnel surgery Exam General: Alert, Oriented x3 Dental: WNL Mouth Opening: Greater than 4 Fingerbreadths Neck Mobility: Reduced Mallampati classification: II Thyromental Distance: greater than 6 cm Respiratory: Lungs clear Cardiovascular: Regular rate, Normal S1, Normal S2 Plan Anesthesia Type: General Consent for Procedure(s) Verified and Reviewed: Yes Code Status: Attempt Resuscitation ASA classification: 3-Severe systemic disease Is this case an emergency?: No
[2023-03-28] MEDS ORDERED: ONDANSETRON 4 MG/2 ML VIAL IVP PRN ×2 (16:04→17:43)
[2023-03-28] MEDS ORDERED: ePHEDrine 50 MG/ML VIAL IVP PRN (16:04)
[2023-03-28] MEDS ORDERED: METOCLOPRAMIDE 10 MG/2 ML VIAL IVP PRN (16:04)
[2023-03-28] MEDS ORDERED: ATROPINE ABBOJECT 1 MG/10 ML SYRINGE IVP PRN (16:04)
[2023-03-28] MEDS ORDERED: fentaNYL 100 MCG/2 ML VIAL IVP PRN (16:04)
[2023-03-28] MEDS ORDERED: HYDROmorphone 0.5 MG/0.5 ML SYRINGE IVP PRN (16:04)
[2023-03-28] MEDS ORDERED: MORPHINE 2 MG/ML CARPUJECT IVP PRN (16:04)
[2023-03-28] MEDS ORDERED: NALOXONE 0.4 MG/ML VIAL IVP PRN (16:04)
[2023-03-28] MEDS ORDERED: ROCURONIUM 50 MG/5 ML VIAL ONE (16:12)
[2023-03-28] MEDS ORDERED: PROPOFOL 200 MG/20 ML VIAL IVP ONE (16:12)
[2023-03-28] MEDS ORDERED: MIDAZOLAM 2 MG/2 ML VIAL ONE (16:12)
[2023-03-28] MEDS ORDERED: LIDOCAINE 1%-EPI 1:100000 20 ML MDV ONE (16:13)
[2023-03-28] MEDS ORDERED: BUPIVACAINE 0.25% PF 30 ML VIAL ONE (16:13)
--- NOTE | 2023-03-28 16:15 | HISTORY & PHYSICAL EXAMINATION ---
Chief Complaint - Chief Complaint Chief Complaint: painful lump back of head History of Present Illness - History Obtained From Records Reviewed: yes History obtained from: pt Exam Limitations: none - History of Present Illness HPI Comment/Other: painful growing lump back of head History - Past Medical History Cardiovascular: reports: High cholesterol, Coronary artery disease, Murmur Respiratory: reports: Pneumonia Endocrine/Autoimmune: reports: None GI: reports: Hiatal hernia, Colon polyps : reports: Benign prostate hypertrophy, Other HEENT: reports: Chronic vision loss, Chronic sinusitis, Chronic hearing loss Psych: reports: None Musculoskeletal: reports: Osteoarthritis, Chronic back pain Derm: reports: Eczema MRSA Hx?: No - Past Surgical History General: reports: Hiatal hernia repair, Colonoscopy, EGD, Other Ortho: reports: Shoulder arthroplasty, Carpal Tunnel surgery Cardiovascular: reports: CABG HEENT: reports: Tonsil/Adenoidectomy - POLST Patient has POLST: Yes Meds/Allgy - Home Medications Home Medications: Ambulatory Orders Medication Instructions Recorded Confirmed Aspirin 81 mg PO DAILY 03/22/16 03/28/23 Atorvastatin Calcium 20 mg PO DAILY 03/22/16 03/28/23 Tamsulosin HCl [Flomax] 0.4 mg PO DAILY 03/22/16 03/28/23 Nitroglycerin [Nitrostat] 0.4 mg SL Q5MIN PRN #20 tablet 08/11/16 03/22/23 Azelastine HCl [Astepro Allergy] 1 inh NS DAILY 03/22/23 03/28/23 Betamethasone Aug 0.05% Cream 1 applic TOP BID 03/22/23 03/28/23 [Diprolene AF 0.05% Cream] Ketoconazole 2% Cream [Nizoral 2% 1 applic TOP BID 03/22/23 03/22/23 Cream] Montelukast [Singulair] 10 mg PO QPM 03/22/23 03/28/23 Mv-Min/Folic/K1/Lycopen/Lutein 1 each PO DAILY 03/22/23 03/28/23 [Centrum Silver Men Tablet] Naproxen Sodium [Aleve] 220 mg PO BID 03/22/23 03/28/23 Omeprazole 20 mg PO DAILY 03/22/23 03/28/23 Turmeric Root Extract [Turmeric] 1,500 mg PO DAILY 03/22/23 03/28/23 methocarbamoL [Methocarbamol] 750 mg PO TID MDD spasm 03/22/23 03/28/23 tiZANidine [Zanaflex] 4 mg PO Q8H PRN 03/22/23 03/28/23 - Allergies Allergies/Adverse Reactions: Allergies Allergy/AdvReac Type Severity Reaction Status Date / Time carisoprodol [From Soma] Allergy Unknown Verified 11/03/18 10:29 codeine Allergy Unknown Verified 03/22/16 13:56 acetaminophen [From Percocet] AdvReac Itching Verified 03/28/23 13:19 oxycodone [From Percocet] AdvReac Itching Verified 03/28/23 13:19 tramadol AdvReac Hallucinati Verified 08/12/18 13:30 ons Review of Systems - Other Findings Other Findings: 10 pt ros as above otherwise unremarkable Exam - Vital Signs Vital Signs: Vital Signs x48h Temp Pulse Resp BP Pulse Ox 03/28/23 13:00 36.0 C L 58 L 16 155/76 H 98 - Physical Exam General Appearance: positive: No acute distress, Alert Eyes Bilateral: positive: PERRL, EOMI ENT: positive: No signs of dehydration Neck: positive: No JVD, Trachea midline Respiratory: positive: No respiratory distress Cardiovascular: positive: Regular rate & rhythm Skin: positive: Other (posterior scalp lipoma 3 cm. fixed) Neurologic/Psychiatric: positive: Oriented x3 Conclusion/Plan - Problem List (1) Lipoma of scalp Conclusion/Plan: plan excision. parq held and consent obtained
[2023-03-28] MEDS ORDERED: ONDANSETRON 4 MG/2 ML VIAL ONE (16:50)
[2023-03-28] MEDS ORDERED: DEXAMETHASONE 4 MG/ML VIAL ONE (16:50)
[2023-03-28] MEDS ORDERED: ePHEDrine 50 MG/ML VIAL IVP ONE (16:57)
[2023-03-28] MEDS ORDERED: LACTATED RINGERS 1,000 ML IV SCH (17:00)
[2023-03-28] MEDS ORDERED: SEVOFLURANE 250 ML LIQUID INH ONE (17:03)
[2023-03-28] MEDS ORDERED: LIDOCAINE 1%-EPI 1:100000 30 ML MDV SUBQ ONE ×2 (17:20)
[2023-03-28] MEDS ORDERED: BUPIVACAINE 0.25% PF 30 ML VIAL SUBQ ONE ×2 (17:20)
[2023-03-28] MEDS ORDERED: SUGAMMADEX 200 MG/2 ML VIAL IVP ONE (17:26)
[2023-03-28] MEDS ORDERED: HYDROcod/ACETAM 5/325 MG TABLET PO PRN (17:43)
--- NOTE | 2023-03-28 17:48 | OPERATIVE REPORT ---
Operative Report - General Procedure Date: 03/28/23 Planned Procedure: excision 3 cm posterior scalp lipoma Pre-Op Diagnosis: painful 3 cm posterior scalp lipoma Procedure Performed: excision 3 cm posterior scalp lipoma 3 cm intermediate repair Post Op Diagnosis: same - Procedure Note Anesthesia Technique: General ET tube, Local Pathology: benign/ not sent Estimated Blood Loss (mL): 2 Drain/Tube Type: Other (none) Indications: painful and growing lipoma Findings: as above Complications: none - Other Other Information/Narrative: The patient was properly identified brought to the operating room and placed in supine position. General endotracheal anesthesia was induced. He was repositioned slightly left lateral decubitus. He was carefully padded. He was prepped and draped in a sterile fashion. Antibiotics were not given. A vertical incision was made right posterior scalp directly over the palpable lipoma. The lipoma was removed with combination of blunt and sharp dissection. Hemostasis was then achieved with cautery. Intermediate repair was performed. Deep subcutaneous tissue was closed with interrupted 2-0 Vicryl suture. Buried interrupted subdermal 3-0 Vicryl sutures were then placed. Skin was closed with a running 3-0 nylon. Tolerated the procedure well was awakened and brought to recovery in good condition.
[2023-03-28 18:26] VITALS: BP 141/76; O2SAT 96
--- NOTE | 2023-03-28 18:50 | ANESTHESIA POST OP EVALUATION ---
Anesthesia Post Eval - Post Anesthesia Eval Vitals: Last Vital Signs Temp 36.6 C 03/28/23 18:10 Pulse 67 03/28/23 18:10 Resp 18 03/28/23 18:10 BP 141/76 H 03/28/23 18:10 Pulse Ox 96 03/28/23 18:10 O2 Flow Rate CV Function Including HR & BP: Stable Pain Control: Satisfactory Nausea & Vomiting: Negative Mental Status: Baseline Respiratory Status: Airway Patent Hydration Status: Satisfactory Anesthesia Complications: None
== END 2023-03-28 12:55 | disposition home or self-care (01) ==
LOC: SDS 12:54
PROVIDERS: ATTEND Surgery
PROC: 0JB00ZZ Excision of Scalp Subcutaneous Tissue and Fascia, Open Approach (ICD-10-PCS; principal; 2023-03-28 14:15)
DX: D17.0 Benign lipomatous neoplasm of skin and subcutaneous tissue of head, face and neck (principal); R51.9 Headache, unspecified; E66.9 Obesity, unspecified; Z68.32 Body mass index [BMI] 32.0-32.9, adult; Z87.891 Personal history of nicotine dependence
CPT/HCPCS: 21012; J3490; J7120

== ENCOUNTER 2023-07-03 07:59 | Outpatient (CLI) | payer MEDICARE ==
[2023-07-03 08:19] LABS: BASOPHILS # (AUTO) 0.1 10^3/uL (0.0-0.1); BASOPHILS % (AUTO) 0.7 %; EOSINOPHILS # (AUTO) 0.1 10^3/uL (0.0-0.7); EOSINOPHILS % (AUTO) 1.8 %; HCT - HEMATOCRIT 48.6 % (42.0-52.0); HGB - HEMOGLOBIN 15.8 g/dL (14.0-18.0); LYMPHOCYTES % (AUTO) 43.6 %; MEAN CORPUSCULAR HEMOGLOBIN 31.8 pg (27.0-31.0); MEAN CORPUSCULAR HGB CONC 32.5 g/dL (32.0-36.0); MEAN CORPUSCULAR VOLUME 97.8 fL (80.0-94.0); MEAN PLATELET VOLUME 11.6 fL (7.4-11.4); MONOCYTES # (AUTO) 0.6 10^3/uL (0.0-1.0); MONOCYTES % (AUTO) 8.9 %; NEUTROPHILS % (AUTO) 44.9 %; PLT - PLATELET COUNT 154 10^3/uL (130-450); RED BLOOD COUNT 4.97 10^6/uL (4.70-6.10); RED CELL DISTRIBUTION WIDTH 12.6 % (12.0-15.0); WHITE BLOOD COUNT 6.8 x10^3/uL (4.8-10.8)
[2023-07-03 08:34] LABS: ALBUMIN 4.4 g/dL (3.2-5.5); ALBUMIN/GLOBULIN RATIO 1.8 (1.0-2.2); ALKALINE PHOSPHATASE 75 IU/L (42-121); ALT ALANINE AMINOTRANSFERASE 23 IU/L (10-60); AST ASPARTATE AMINOTRANSFERASE 17 IU/L (10-42); BILIRUBIN,TOTAL 0.8 mg/dL (0.2-1.0); BUN - BLOOD UREA NITROGEN 15 mg/dL (6-20); CALCIUM 9.7 mg/dL (8.5-10.3); CARBON DIOXIDE - CO2 33 mmol/L (21-32); CHLORIDE 106 mmol/L (101-111); CHOL/HDL RATIO 2.8 (<5.0); CHOLESTEROL 106 mg/dL; CREATININE 0.9 mg/dL (0.6-1.3); GFR - MDRD 82 (>89); GLUCOSE 111 mg/dL (74-104); HDL CHOLESTEROL 38 mg/dL; LDL CHOLESTEROL,CALCULATED 50 mg/dL; LDL/HDL RATIO 1.3 (<3.6); POTASSIUM 4.3 mmol/L (3.5-4.5); SODIUM 141 mmol/L (135-145); TOTAL PROTEIN 6.8 g/dL (6.4-8.9); TRIGLYCERIDES 92 mg/dL (48-352); VLDL CHOLESTEROL 18 mg/dL
[2023-07-03 08:49] LABS: THYROID STIMULATING HORMONE 1.12 uIU/mL (0.34-5.60)
[2023-07-03 09:11] LABS: ESTIMATED AVERAGE GLUCOSE 111 mg/dL (70-100); HEMOGLOBIN A1c% 5.5 % (4.27-6.07)
== END 2023-07-03 08:00 | disposition home or self-care (01) ==
LOC: LAB 07:59
PROVIDERS: ATTEND Nurse Practitioner
DX: I25.10 Atherosclerotic heart disease of native coronary artery without angina pectoris (principal); E78.5 Hyperlipidemia, unspecified; R73.03 Prediabetes; Z12.5 Encounter for screening for malignant neoplasm of prostate; F32.A Depression, unspecified
CPT/HCPCS: 36415; 80053; 80061; 83036; 84443; 85025; G0103; 83721; 84153

== ENCOUNTER 2024-01-06 08:27 | Day surgery (SDC) | payer MEDICARE ==
[2024-01-06] MEDS: LACTATED RINGERS 1,000 ML IV ONE (08:34)
[2024-01-06] MEDS ORDERED: MORPHINE 2 MG/ML CARPUJECT IVP PRN (09:40)
[2024-01-06] MEDS ORDERED: HYDROmorphone 0.5 MG/0.5 ML SYRINGE IVP PRN (09:40)
[2024-01-06] MEDS ORDERED: ATROPINE ABBOJECT 1 MG/10 ML SYRINGE IVP PRN (09:40)
[2024-01-06] MEDS ORDERED: NALOXONE 0.4 MG/ML VIAL IVP PRN (09:40)
[2024-01-06] MEDS ORDERED: ONDANSETRON 4 MG/2 ML VIAL IVP PRN (09:40)
[2024-01-06] MEDS ORDERED: fentaNYL 100 MCG/2 ML VIAL IVP PRN (09:40)
[2024-01-06] MEDS ORDERED: METOCLOPRAMIDE 10 MG/2 ML VIAL IVP PRN (09:40)
[2024-01-06] MEDS ORDERED: ePHEDrine 50 MG/ML VIAL IVP PRN (09:40)
--- NOTE | 2024-01-06 09:40 | ANESTHESIA ---
Pre-Anesthesia VS, & Labs - Diagnosis BPH, lower UTI symptoms - Procedure URO LIFT Vital Signs: Temp Pulse Resp BP Pulse Ox O2 Flow Rate 36.0 C L 59 L 22 150/72 H 97 01/06/24 08:47 01/06/24 08:47 01/06/24 08:47 01/06/24 08:47 01/06/24 08:47 Height: 5 ft 7.5 in Weight (kg): 97.07 kg Body Mass Index: 33.0 BMI Classification: Obese - NPO >8 hours - Lab Results Lab results reviewed: Yes Home Medications and Allergies Aspirin 81 mg PO DAILY 03/22/16 Atorvastatin Calcium 20 mg PO DAILY 03/22/16 Tamsulosin HCl [Flomax] 0.4 mg PO DAILY 03/22/16 Montelukast [Singulair] 10 mg PO QPM 03/22/23 Mv-Min/Folic/K1/Lycopen/Lutein [Centrum Silver Men Tablet] 1 each PO DAILY 03/22/23 Naproxen Sodium [Aleve] 220 mg PO BID 03/22/23 Omeprazole 20 mg PO DAILY 03/22/23 tiZANidine [Zanaflex] 4 mg PO Q8H PRN 03/22/23 Allergies/Adverse Reactions: Allergies Allergy/AdvReac Type Severity Reaction Status Date / Time codeine Allergy Unknown Verified 01/06/24 08:52 tramadol AdvReac Hallucinati Verified 01/06/24 08:52 ons Anes History & Medical History - Anesthetic History Anesthesia Complications: reports: No previous complications Family history of Anesthesia Complications: Denies Family history of Malignant Hyperthermia: Denies - Medical History Cardiovascular: reports: High cholesterol, Coronary artery disease Pulmonary: reports: Pneumonia Gastrointestinal: reports: Hiatal hernia, Colon polyps Urinary: reports: Benign prostate hypertrophy, Other Musculoskeletal: reports: Osteoarthritis, Chronic back pain Endocrine/Autoimmune: reports: None Skin: reports: Eczema Smoking Status: Former smoker Psychosocial: reports: Alcohol History of Cancer?: No - Surgical History General: reports: Hiatal hernia repair, Colonoscopy, EGD, Other Eyes Ears Nose Throat (EENT): reports: Tonsil/Adenoidectomy Cardiothoracic: reports: CABG (triple bypass 2014) Orthopedic: reports: Shoulder arthroplasty, Carpal Tunnel surgery Exam General: Alert, Oriented x3, Cooperative Dental: Partials Upper, Other (all partials removed, several perm implants) Mouth Openin Fingerbreadth Neck Mobility: Reduced Mallampati classification: II Thyromental Distance: 4-6 cm Respiratory: Lungs clear, Normal breath sounds, No respiratory distress Cardiovascular: Regular rate Neurological: Normal speech Mental/Cognitive Status: Alert/Oriented X3, Normal for patient Plan Anesthesia Type: General Consent for Procedure(s) Verified and Reviewed: Yes Code Status: Attempt Resuscitation ASA classification: 3-Severe systemic disease Is this case an emergency?: No
[2024-01-06] MEDS ORDERED: LACTATED RINGERS 1,000 ML IV SCH (10:00)
[2024-01-06] MEDS ORDERED: LIDOCAINE 2% URO-JET 5 ML SYRINGE UR ONE (11:28)
[2024-01-06] MEDS ORDERED: PROPOFOL 500 MG/50 ML 500 MG/50 ML VIAL ONE (11:31)
[2024-01-06] MEDS ORDERED: MIDAZOLAM 2 MG/2 ML VIAL ONE (11:31)
[2024-01-06] MEDS ORDERED: fentaNYL 100 MCG/2 ML VIAL ONE (11:31)
[2024-01-06] MEDS: LIDOCAINE 2% URO-JET 5 ML SYRINGE IV ONE (11:35)
--- NOTE | 2024-01-06 12:16 | Discharge Plan ---
Discharge Plan Problem Reviewed?: Yes Disposition: Home, Self Care Condition: Good Prescriptions: Docusate Sodium 100Mg Capsule [Colace 100Mg Capsule] 100 mg PO DAILY #14 cap HYDROcod/ACETAM 5/325 [Prospect 5/325] 1 tab PO Q4H PRN #10 tablet PRN Reason: Pain Diet: Regular Activity Restrictions: Additional Comments (as instructed) Shower Restrictions: No Driving Restrictions: No Instruction Topics: Frias Catheter Remove, Catheter Indwelling Urinary Dc, Catheter Bag Urinary Empty Clean Additional Instructions or Follow Up instructions: You will be contacted for follow-up with Dr. Sandoval in roughly 6 weeks time No Smoking: If you smoke, Please STOP! Call for help. Follow-up with: Bogdan Sandoval MD [Provider Admit Priv/Credential] -
--- NOTE | 2024-01-06 12:20 | OPERATIVE REPORT ---
Operative Report - General Procedure Date: 01/06/24 Planned Procedure: UroLift procedure Pre-Op Diagnosis: BPH with LUTs Procedure Performed: UroLift procedure Post Op Diagnosis: BPH with LUTS - Procedure Note Primary Surgeon: Jaime Anesthesia Provider: NATANAEL Gann Anesthesia Technique: MAC Pathology: none Estimated Blood Loss (mL): 5 Findings: 6 UroLift implants Complications: none - Other Other Information/Narrative: After informed consent was obtained the patient was brought to the OR and laid in the supine position. The patient was anesthetized per anesthesia protocols and prepped draped in the usual sterile fashion. He was placed in dorsolithotomy position A formal timeout was performed reconfirmed the patient, procedure and laterality A UroLift cystoscope was advanced easily into urinary bladder. Bladder was inspected and there were no masses lesions or other concerns. He had a lateral lobe hypertrophy and no median lobe. One UroLift implant was placed about 5 mm distal to the bladder neck on either side. We then placed 1 UroLift implant just proximal to the verumontanum and the anterior channel on either side. We reinspected the prostate with a obturator and we could see that there was some ballooning of tissue between these implants and so we placed 1 UroLift on both the left and the right side and anterior channel [facility] between these other implants. We reinspected his urethra and he had a good anterior channel. A total of 6 UroLift implants were used. A Uro-Jet was placed and then we placed a 22 [place] three-way Frias catheter as there was some mild bleeding from the mucosa. He was then brought to the PACU without further incident. He will remove the catheter tomorrow and follow-up in 6 weeks time
[2024-01-06] MEDS ORDERED: HYDROcod/ACETAM 5/325 MG TABLET ONE (12:23)
--- NOTE | 2024-01-06 15:23 | ANESTHESIA POST OP EVALUATION ---
Anesthesia Post Eval - Post Anesthesia Eval Vitals: Last Vital Signs Temp 36.5 C 01/06/24 13:31 Pulse 58 L 01/06/24 14:00 Resp 16 01/06/24 14:00 BP 156/91 H 01/06/24 14:00 Pulse Ox 99 01/06/24 14:00 O2 Flow Rate CV Function Including HR & BP: Stable Pain Control: Satisfactory Nausea & Vomiting: Negative Mental Status: Baseline Respiratory Status: Airway Patent Hydration Status: Satisfactory Anesthesia Complications: None
[2024-01-06 16:12] VITALS: BP 172/79; O2SAT 98
[2024-01-06] MEDS: HYDROcod/ACETAM 5/325 MG TABLET PO PRN (16:12)
== END 2024-01-06 08:28 | disposition home or self-care (01) ==
LOC: SDS 08:27
PROVIDERS: ATTEND Urology
DX: N40.1 Benign prostatic hyperplasia with lower urinary tract symptoms (principal); E66.9 Obesity, unspecified; Z68.33 Body mass index [BMI] 33.0-33.9, adult; I25.10 Atherosclerotic heart disease of native coronary artery without angina pectoris; Z87.891 Personal history of nicotine dependence
CPT/HCPCS: 52441; 52442; A9270; J7120; L8699